=== PATIENT | female | born 1990 | race Caucasian/White ===

== ENCOUNTER 2019-03-25 14:39 | Outpatient (RCR) | payer BC, SELFPAY ==
[2019-03-25] MEDS: RHO(D) IMMUNE GLOBULIN 300 MCG SYRINGE IM (17:52)
== END 2019-06-23 23:59 | disposition home or self-care (01) ==
LOC: ANHLAB 14:39
PROVIDERS: Visit Provider Student in an Organized Health Care Education/Training Program
DX: Z29.13 Encounter for prophylactic Rho(D) immune globulin (principal); O36.0990 Maternal care for other rhesus isoimmunization, unspecified trimester, not applicable or unspecified; Z3A.00 Weeks of gestation of pregnancy not specified
CPT/HCPCS: 36415; 90384; 96372; J2790

== ENCOUNTER 2019-04-30 12:07 | Outpatient (RCR) | payer BC, SELFPAY ==
[2019-04-24 12:11] VITALS: BP 107/68; PULSE 106
[2019-04-27 10:02] VITALS: BP 102/70; PULSE 99
--- NOTE | ~2019-04-30 | US_ITS ---
EXAMINATION: US OB BPP wo non-stress DATE: 04/27/2019 10:42 CDT INDICATION: bladder obstruction TECHNIQUE: Real-time transabdominal obstetric ultrasound. FINDINGS: No prior studies for comparison. There is a single living fetus in vertex presentation. The placenta is anterior without placenta pre via. cardiac activity and movement is noted with a heart rate of 139 beats per minute. Biophysical profile: breathin of 2 movement: 2 of 2 tone: 2 of 2 Amniotic flud pocket: 2 of 2 Total score: 8 of 8 IMPRESSION: 1. Single living intrauterine in vertex presentation. 2: Total biophysical profile score of 8/8. Reviewed, dictated and finalized at location A.
[2019-04-30 12:45] VITALS: BP 102/70; PULSE 99
== END 2019-06-09 08:10 | disposition home or self-care (01) ==
LOC: ANHOBOP 12:07
PROVIDERS: Visit Provider Student in an Organized Health Care Education/Training Program
DX: O36.8930 Maternal care for other specified fetal problems, third trimester, not applicable or unspecified (principal); Z3A.32 32 weeks gestation of pregnancy; Z3A.33 33 weeks gestation of pregnancy
CPT/HCPCS: 59025; 76819

== ENCOUNTER → 2020-08-15 06:38 | Outpatient (CLI) | payer BC, SELFPAY ==
[2020-08-15 18:16] LABS: SARS-CoV-2 RNA PCR Negative
== END ==
PROVIDERS: PCP Family Medicine; Visit Provider Family Medicine
DX: R68.89 Other general symptoms and signs (principal); Z20.822 Contact with and (suspected) exposure to COVID-19
CPT/HCPCS: C9803; U0003; U0005

== ENCOUNTER 2022-06-01 10:29 | Day surgery (SDC) | payer OTHER, SELFPAY ==
[2022-05-22 10:03] VITALS: BMI 20.7
--- NOTE | 2022-05-31 15:42 | WPDANESEPPF ---
Anes - Initial Pre Proc Eval Procedure: Operation Date: 06/01/22 12:15 Proposed Procedures p Bilateral Breast Augmentation Mammoplasty - Fer Kwok MD s Inverted Nipple Repair Left Breast - Fer Kwok MD Date/Time: 05/31/22 15:42 Surgeon: Fer Kwok MD Pre Op Diagnosis: Micromastia Patient Data Age: 32 Gender: F Height: 1.73 m Weight: 62 kg Allergies Allergy/AdvReac Type Severity Reaction Status Date / Time No Known Allergies Allergy Verified 12/02/20 13:34 Home Medications Medication Instructions Recorded Confirmed Type multivitamin 1 tablet PO DAILY 12/02/20 05/22/22 History Patient hx anesthesia problems: none Family hx anesthesia problems: none Results Review: All pre-operative results and documents have been reviewed as part of the pre-operative evaluation. [facility] Past Medical History Medical History (vaginal after ) x3 Surgical History Surgical History History of delivery x1 S/P appendectomy Family History Family History Grandparent Carcinoma of colon Hypertension High cholesterol Social History Social History Smoking status: Never smoker Alcohol intake: current Alcohol use details: socially Substance use: never Substance use type: does not use Living arrangements: with family Spiritual care concerns: No Anes - Eval Final PreProcedure Day of Procedure 05/31/22 15:42 Patient weight: normal Heart: regular rate and rhythm Lungs: clear to auscultation and normal air movement Airway: Mallampati scale class II Neurological: alert and oriented Last oral intake: >/= 8 hours ASA classification: I Emergent: no Anesthetic plan: proceed Anesthesia type and monitoring: general LMA Results Review: All pre-operative results and documents have been reviewed as part of the pre-operative evaluation. Informed Consent: The patient's anesthetic plan and its attendant risks and benefits were discussed with the patient/family/POA. Questions were solicited and answers provided to the satisfaction of the patient/family/POA.
[2022-06-01] VITALS (7 sets, daily range): BP systolic 108–138; BP diastolic 68–91; PULSE 58–82; RESP 15–18; TEMP 36.6–36.7; O2SAT 98–100
[2022-06-01] MEDS: SCOPOLAMINE 1.5 MG PATCH TRANSDERM (12:07)
[2022-06-01] MEDS: LACTATED RINGERS 1,000 ML 30 ML IV CONT ×2 (12:20→14:43)
[2022-06-01] MEDS: TRANEXAMIC ACID 1,000 MG/10 ML AMPUL 1000 MG IV PUSH (13:37)
[2022-06-01] MEDS: ceFAZolin SODIUM 2 GM/20 ML SW SYRINGE IV PUSH (13:37)
[2022-06-01] MEDS: LIDO 1%/EPINEPHRINE 1:100,000 20 ML VIAL 30 ML INFILTRATE (13:57)
[2022-06-01] MEDS: NACL 0.9% IRRIG POUR BOTTLE 900 ML, GENTAMICIN SULFATE INJ 160 MG, ceFAZolin 2 GM, POVI... IRRIGATION (14:20)
--- NOTE | 2022-06-01 14:45 | W.PM.PROC2 ---
Procedure Note - Detailed Date of Procedure 06/01/22 Pre-op Diagnosis Micromastia Post-op Diagnosis Same Procedure Performed 1. Bilateral augmentation mammaplasty 2. Left inverted nipple repair Surgeon Fer Kwok MD Anesthesia General Findings Bilateral Klye Isbell SoftTouch 320 cc Right - REF# [id number] SN [id number] Left - REF# [id number] SN [id number] Description of Procedure She is here today for bilateral breast augmentation.? Previously and again today the risks, benefits, alternatives were discussed in extensive detail.? I wanted her to be very realistic about the risks involved as well as expectations.? We discussed aftercare and what to monitor for.? Made sure answered all of her questions to her satisfaction today and consent was obtained. Marked in the preoperative holding area with their verification.? The patient was taken to the operating room placed supine on the operating table. Anesthesia was provided by anesthesiology.? A surgical time-out was taken.? We cleansed the skin and 1% lidocaine and 0.25% Marcaine with epinephrine was used anesthetize as a field block.? She was prepped and draped in a standard sterile fashion. Tegaderm nipple [place] were placed.? A 15 blade used to make an incision along the inframammary fold.? Dissection was continued at 45 degree angle until the chest wall as identified.? I incised the pectoralis major along its inferior border and completely released the inferior border leaving the medial border intact. I created a subpectoral pocket in the appropriate dimensions based on our preoperative planning for the implant. I then copiously irrigated with saline solution and verified a strict hemostasis. Next the use a triple antibiotic and Betadine containing solution to irrigate the pocket.? I washed my gloves with the triple antibiotic and Betadine solution.? We washed the implant immediately upon opening it with this solution and only opened it when we needed it.? I used implant funnel and no-touch technique. The implant was introduced into the pocket using the funnel.? Having verified positioning of the implant this was closed using 2-0 Vicryl followed by 3-0 Monocryl in a running subcuticular 4-0 Monocryl followed by tissue glue. Tegaderm removed. I was able to easily chevy the left nipple.? A 15 blade was used to make an incision at the inferior aspect of nipple and I used a spreading technique to provide eversion without traction.? No ducts were cut.? I placed two horizontal mattress 3-0 Vicryl and closed nipple with 5-0 chromic.? Left nipple maintained projection and matched the contralateral nipple. Fluffs and surgical bra were placed. Patient was awoke and taken to PACU without difficulty.? All instrument sponge counts were correct at the end of the case. Estimated Blood Loss 25 Drains No Packing No Pathology None sent Complications No immediate complications Condition Stable Disposition PACU
--- NOTE | 2022-06-01 14:47 | WPDANESPN ---
Anes - Prog Note Post-Op Date/Time: 06/01/22 14:47 Cardiovascular status: normal Respiratory status: normal Airway patency: baseline Mental status: baseline Post-Op hydration status: normal Vital Signs: Last Vital Signs Temp 36.6 C 06/01/22 10:50 Pulse 69 06/01/22 10:50 Resp 16 06/01/22 10:50 BP 119/91 H 06/01/22 10:50 Pulse Ox 100 06/01/22 10:50 O2 Del Method Room Air 06/01/22 10:50 Pain Score (VAS): 0 Post-procedural complaints: none Patient Feedback: Patient satisfied with anesthetic care.
[2022-06-01] MEDS: fentaNYL CITRATE INJ (*CRX) 100 MCG/2 ML VIAL 25 MCG IV PUSH ×2 (15:02→15:08)
[2022-06-01] MEDS: ONDANSETRON INJ 4 MG/2 ML VIAL IV PUSH (15:06)
--- NOTE | 2022-06-01 15:14 | SUR.PHASEI ---
1506. PT STATES SHE IS NAUSEATED. ZOFRAN GIVEN. IVF INCREASED.
--- NOTE | 2022-06-01 15:15 | SUR.PHASEI ---
PT RESTING QUIETLY. STATES NAUSEA AND PAIN ARE IMPROVED NOW.
--- NOTE | 2022-06-01 16:09 | SUR.PHASEII ---
PT NAUSEATED AGAIN. TRYING TO EAT SALTINES
[2022-06-01] MEDS: oxyCODONE HCL (*CRX) 5 MG TAB IR PO (16:12)
--- NOTE | 2022-06-01 16:23 | SUR.PHASEII ---
PT TOOK OXYCODONE FOR PAIN 7-09/27. STATES STILL SOME NAUSEA. PT EATING SALTINES AND DRINKING WHITE SODA. PT STATES SHE WANTS TO GO HOME AND GO TO BED.
== END 2022-06-01 16:45 | disposition home or self-care (01) ==
PROVIDERS: PCP Family Medicine; Visit Provider Surgery Plastic and Reconstructive Surgery
PROC: (CPT 19325; principal; 2022-06-01 12:15)
PROC: (CPT 19350; 2022-06-01 12:15)
DX: Z41.1 Encounter for cosmetic surgery (principal)
CPT/HCPCS: 19325